=== PATIENT | female | born 1940 | race Caucasian/White ===

== ENCOUNTER 2025-04-29 10:21 | Outpatient (CLI) | payer OTHER ==
[~2025-04-29 10:21] MED LIST: DEPAKOTE SPRIN125 MG; EVISTA60 MG; PREVACID30 MG/PACK; SEROQUEL200 MG
== END 2025-04-29 10:29 | disposition home or self-care (01) ==
LOC: TOM 10:21
DX: Z12.11 Encounter for screening for malignant neoplasm of colon (principal)